=== PATIENT | female | born 1960 | race Caucasian/White ===

== ENCOUNTER 2018-07-11 11:26 | Inpatient (IN) | payer OTHER ==
[~2018-07-11] VITALS: Ht 160 cm; Wt 58.1 kg
--- NOTE | ~2018-07-11 | O ---
[facility] [place] [address] OPERATIVE REPORT Name: SHAINA WALTERS Room #: 222-P ADM IN M.R.#: [id number] Admission: 07/11/18 Attend Phys: Houston Jackson MD Discharge: Date of : 56 Report #: [id number] THIS REPORT FOR: //name// CC: Houston Brownlee DATE OF SERVICE: 07/13/2018 SURGEON: Uche Santiago MD PREOPERATIVE DIAGNOSIS: Ulcerative colitis. POSTOPERATIVE DIAGNOSIS: See below. ANESTHESIA USED: See Anesthesia notes. NAME OF THE PROCEDURE: Colonoscopy. INDICATION FOR PROCEDURE: As above. FINDINGS: Severe left-sided colitis. DESCRIPTION OF PROCEDURE: The risks and benefits of the procedure were explained in detail prior to monitored anesthesia. The patient was placed in left lateral decubitus position and digital rectal exam was performed and normal. Next, the Olympus video colonoscope was advanced into the rectum and gently to the cecum without difficulty. A thorough inspection of the colonic mucosal detail was obtained upon slow withdrawal of the colonoscope. There was left-sided colitis that extended from the splenic flexure to the anorectal junction, which was moderate to severe in nature. The retroflexion was not performed in the rectum due to acute inflammation. Beyond these significant findings, there was no evidence of masses, tumors, colitis, AVMs, polyps or other significant abnormality. The patient tolerated the procedure well and was discharged to recovery. IMPRESSION: [id number] left-sided ulcerative colitis. PLAN: See orders. Continue IV corticosteroids and 5-ASA. <ELECTRONICALLY SIGNED> By: Uche Santiago MD 07/14/18 1418 [id number] Uche Santiago MD /nt
[~2018-07-11 11:26] MED LIST: AMITRIPTYLINE H25 M2 PO; CIPRO500 MG PO; CIPROFLOXACIN500 M1 PO; CLEOCIN HCL150 MG PO; FLAGYL500 MG PO; FLORASTOR250 MG PO; HYOSCYAMINE0.125 MG SUBLING; LIALDA1.2 GM PO; NAPROSYN500 MG; NORCO 5-325 TA1 EACH PO; OXYCODONE HCL 55 MG PO; PREDNISONE 10 M10 MG PO; PREDNISONE 5 MG5 M1 PO; PREDNISONE5 GM; ROWASA RECTAL; VALIUM5 MG PO
[2018-07-11 11:49] VITALS: BP 150/95
[2018-07-11 12:37] LABS: URINE BILIRUBIN NEGATIVE (Negative); URINE BLOOD NEGATIVE (Negative); URINE CLARITY CLEAR; URINE COLOR YELLOW; URINE GLUCOSE-RANDOM* NEGATIVE (Negative); URINE KETONES 1+ (Negative); URINE LEUKOCYTES-REFLEX NEGATIVE (Negative); URINE NITRITE-REFLEX NEGATIVE (Negative); URINE PROTEIN (DIPSTICK) NEGATIVE (Negative); URINE SPECIFIC GRAVITY <= 1.005 (1.005-1.035); URINE UROBILINOGEN 0.2 E.U./dl (0.2-1.0)
[2018-07-11 12:59] LABS: BASOPHILS 0.2 % (0.0-2.0); HEMATOCRIT 32.9 % (37.0-47.0); HEMOGLOBIN 11.2 gm/dL (12.0-15.0); LYMPHOCYTES 4.3 % (24.0-44.0); MCH 33.3 pg (26.0-34.0); MCHC 33.9 g/dL (28.0-37.0); MONOCYTES 1.2 % (1.0-8.0); PLATELET COUNT 412 thou/uL (150-400); POLYS 94.3 % (36.0-66.0); RBC 3.36 mil/uL (4.20-5.00); RDW 12.8 % (10.5-14.5); WBC 12.7 thou/uL (4.0-11.0)
[2018-07-11 13:09] LABS: CALCIUM 8.4 mg/dL (8.5-10.1); CREATININE 0.8 mg/dL (0.6-1.0); POTASSIUM 3.6 mmol/L (3.5-5.1)
[2018-07-11 13:12] LABS: APTT 23.8 Seconds (24.5-32.8); PROTIME 10.1 Seconds (9.3-11.4)
[2018-07-11 13:13] LABS: TOTAL BILIRUBIN 0.2 mg/dL (<0.1-1.0); TOTAL PROTEIN 6.7 g/dL (6.4-8.2)
[2018-07-11 15:03] VITALS: BP 110/60
[2018-07-11 16:06] VITALS: BP 132/74
[2018-07-11 17:10] VITALS: BP 123/68
[2018-07-11 20:07] VITALS: BP 122/73
[2018-07-12 03:44] VITALS: BP 104/62
[2018-07-12 08:14] VITALS: BP 141/82
[2018-07-12 15:20] VITALS: BP 112/64
[2018-07-13 08:30] VITALS: BP 130/75
[2018-07-13 19:38] VITALS: BP 118/67
[2018-07-14 08:02] VITALS: BP 120/72
[2018-07-14 20:31] VITALS: BP 103/61
[2018-07-15 08:09] VITALS: BP 127/78
[2018-07-15 13:33] VITALS: BP 127/78
== END 2018-07-15 14:19 | disposition home or self-care (01) | DRG 871 ==
LOC: ER 11:26 → 4E 13:37 → EROBS 13:37 → 4E 16:27 → SICU 07-12 18:55 → ENTRNSPT 07-15 13:58 → EDTRNSPTSTS 07-15 14:00 → SICU 07-15 14:19
PROVIDERS: Emergency Medicine
PROC: 0DJD8ZZ Inspection of Lower Intestinal Tract, Via Natural or Artificial Opening Endoscopic (ICD-10-PCS; principal; 2018-07-13)
DX: A41.9 Sepsis, unspecified organism (principal); E43 Unspecified severe protein-calorie malnutrition; K51.911 Ulcerative colitis, unspecified with rectal bleeding; M19.90 Unspecified osteoarthritis, unspecified site; Z88.2 Allergy status to sulfonamides; Z88.8 Allergy status to other drugs, medicaments and biological substances; Z87.891 Personal history of nicotine dependence; Z79.899 Other long term (current) drug therapy; Z80.0 Family history of malignant neoplasm of digestive organs; Z68.22 Body mass index [BMI] 22.0-22.9, adult
CPT/HCPCS: 10084; 15002; 62110; 62900; 70005

== ENCOUNTER 2018-07-17 10:05 | Inpatient (IN) | payer OTHER ==
[~2018-07-17] VITALS: Ht 160 cm; Wt 56.6 kg
[2018-07-17 10:05] VITALS: BP 147/68
[2018-07-17 10:22] LABS: URINE BILIRUBIN NEGATIVE (Negative); URINE BLOOD NEGATIVE (Negative); URINE CLARITY CLEAR; URINE GLUCOSE-RANDOM* NEGATIVE (Negative); URINE KETONES NEGATIVE (Negative); URINE LEUKOCYTES-REFLEX NEGATIVE (Negative); URINE NITRITE-REFLEX NEGATIVE (Negative); URINE PROTEIN (DIPSTICK) NEGATIVE (Negative); URINE SPECIFIC GRAVITY <= 1.005 (1.005-1.035); URINE UROBILINOGEN 0.2 E.U./dl (0.2-1.0)
[2018-07-17 10:26] LABS: URINE COLOR COLORLESS
[2018-07-17 10:30] LABS: ABSOLUTE NEUTROPHILS 12.2 thou/uL (1.4-8.2); HEMOGLOBIN 10.8 gm/dL (12.0-15.0); LYMPHOCYTES 5.5 % (24.0-44.0); MCH 32.6 pg (26.0-34.0); MCHC 33.7 g/dL (28.0-37.0); MCV 96.8 fL (80.0-100.0); MONOCYTES 2.4 % (1.0-8.0); PLATELET COUNT 465 thou/uL (150-400); POLYS 92.1 % (36.0-66.0); RBC 3.31 mil/uL (4.20-5.00); RDW 12.9 % (10.5-14.5); WBC 13.2 thou/uL (4.0-11.0)
[2018-07-17 10:38] LABS: CALCIUM 8.4 mg/dL (8.5-10.1); CREATININE 0.7 mg/dL (0.6-1.0); POTASSIUM 3.2 mmol/L (3.5-5.1)
[2018-07-17 10:43] LABS: ALBUMIN 2.8 g/dL (3.4-5.0); TOTAL BILIRUBIN 0.3 mg/dL (<0.1-1.0)
[2018-07-17 11:49] VITALS: BP 107/65
[2018-07-17 12:57] VITALS: BP 107/65
[2018-07-17 14:38] VITALS: BP 107/65
[2018-07-17 17:50] VITALS: BP 112/58
[2018-07-17 19:50] VITALS: BP 109/59
[2018-07-18 04:56] VITALS: BP 100/55
[2018-07-18 08:00] VITALS: BP 97/62
[2018-07-18 09:33] VITALS: BP 100/55
[2018-07-18 09:50] VITALS: BP 156/61
[2018-07-18 15:09] LABS: HEP B SURFACE Ab(ANTI-HBS Non Reactive (()); HEPATITIS B SURFACE AG Negative (Negative)
[2018-07-18 20:00] VITALS: BP 108/65
[2018-07-19 04:57] VITALS: BP 123/69
[2018-07-19 05:59] LABS: HEMATOCRIT 30.7 % (37.0-47.0); HEMOGLOBIN 10.3 gm/dL (12.0-15.0); MCH 32.7 pg (26.0-34.0); MCHC 33.5 g/dL (28.0-37.0); MCV 97.6 fL (80.0-100.0); RBC 3.14 mil/uL (4.20-5.00); RDW 12.9 % (10.5-14.5); WBC 11.6 thou/uL (4.0-11.0)
[2018-07-19 06:21] LABS: ALBUMIN 2.5 g/dL (3.4-5.0); CALCIUM 8.5 mg/dL (8.5-10.1); CREATININE 0.7 mg/dL (0.6-1.0); POTASSIUM 3.9 mmol/L (3.5-5.1); TOTAL BILIRUBIN 0.2 mg/dL (<0.1-1.0); TOTAL PROTEIN 5.7 g/dL (6.4-8.2)
[2018-07-19 07:38] VITALS: BP 130/71
[2018-07-19] MEDS ORDERED: HYDROCODONE-AP1 EAC6 PO (15:13)
[2018-07-19] MEDS ORDERED: PREDNISONE 20 M20 MG PO (15:14)
[2018-07-19 15:38] VITALS: BP 130/71
[2018-07-19 15:45] VITALS: BP 138/81
[2018-07-22 10:11] LABS: T-SPOT.TB Negative
== END 2018-07-19 16:47 | disposition home or self-care (01) | DRG 385 ==
LOC: ER 10:05 → 4E 11:31 → EROBS 11:31 → 4E 12:07 → ENTRNSPT 07-19 16:10 → 4E 07-19 16:47
PROVIDERS: Nurse Practitioner; Physician Assistant; Specialist
DX: K51.90 Ulcerative colitis, unspecified, without complications (principal); E43 Unspecified severe protein-calorie malnutrition; M19.042 Primary osteoarthritis, left hand; D64.9 Anemia, unspecified; E86.0 Dehydration; E87.6 Hypokalemia; D72.829 Elevated white blood cell count, unspecified; M19.041 Primary osteoarthritis, right hand; Z90.49 Acquired absence of other specified parts of digestive tract; Z88.2 Allergy status to sulfonamides; Z88.8 Allergy status to other drugs, medicaments and biological substances; Z87.891 Personal history of nicotine dependence; Z80.0 Family history of malignant neoplasm of digestive organs; Z79.899 Other long term (current) drug therapy; Z68.22 Body mass index [BMI] 22.0-22.9, adult
CPT/HCPCS: 10183; 10783

== ENCOUNTER 2018-09-06 08:58 | Emergency (ER) | payer OTHER ==
[~2018-09-06] VITALS: Ht 160 cm; Wt 59.2 kg
--- NOTE | ~2018-09-06 | EKG ---
[address] [address] ELECTROCARDIOGRAM REPORT Name: SELENASHAINA DANIEL Room #: DEP [id number] Admission: 09/06/18 Attend Phys: Discharge: 09/06/18 Date of : 56 Report #: [id number] THIS REPORT FOR: //name// [facility] ED Test Date: 2018-09-06 Test Time: 09:59:09 Pat Name: SHAINA WALTERS Department: Room: Gender: F Accounts Payable Payroll Coordinator: [facility] : 1960 Requested By: Yara Lopez Order Number: [id number] MD: Louie Layne Measurements Intervals [place] Rate: 95 P: 18 TN: 149 QRS: -3 QRSD: 90 T: 7 QT: 333 QTc: 419 Interpretive Statements Sinus rhythm No previous ECG available for comparison Electronically Signed On 09-08-2018 16:44:10 CDT by Louie Layne [email or web address] <ELECTRONICALLY SIGNED> By: Louie Layne MD 09/08/18 1644 [id number] Louie Layne MD /THOMAS
[~2018-09-06 08:58] MED LIST changes: +HYDROCODONE-AP1 EAC6 PO; +PREDNISONE 20 M20 MG PO
[2018-09-06 10:46] LABS: BASOPHILS 0.8 % (0.0-2.0); EOSINOPHILS 1.1 % (0.0-3.0); HEMATOCRIT 32.3 % (37.0-47.0); HEMOGLOBIN 10.5 gm/dL (12.0-15.0); LYMPHOCYTES 23.7 % (24.0-44.0); MCH 28.5 pg (26.0-34.0); MCHC 32.4 g/dL (28.0-37.0); MCV 87.8 fL (80.0-100.0); MONOCYTES 6.4 % (1.0-8.0); PLATELET COUNT 333 thou/uL (150-400); RBC 3.68 mil/uL (4.20-5.00); RDW 15.3 % (10.5-14.5); WBC 5.9 thou/uL (4.0-11.0)
[2018-09-06 10:50] LABS: URINE BILIRUBIN NEGATIVE (Negative); URINE BLOOD NEGATIVE (Negative); URINE CLARITY CLEAR; URINE COLOR YELLOW; URINE GLUCOSE-RANDOM* NEGATIVE (Negative); URINE KETONES NEGATIVE (Negative); URINE LEUKOCYTES-REFLEX NEGATIVE (Negative); URINE NITRITE-REFLEX NEGATIVE (Negative); URINE PROTEIN (DIPSTICK) NEGATIVE (Negative); URINE SPECIFIC GRAVITY <= 1.005 (1.005-1.035); URINE UROBILINOGEN 0.2 E.U./dl (0.2-1.0)
[2018-09-06 11:00] LABS: ANION GAP 7 mmol/L (7-16); BUN 7 mg/dL (7-18); CALCIUM 8.8 mg/dL (8.5-10.1); CHLORIDE 102 mmol/L (98-107); CO2 27 mmol/L (21-32); CREATININE 0.6 mg/dL (0.6-1.0); GLUCOSE 100 mg/dL (74-106); POTASSIUM 3.5 mmol/L (3.5-5.1); SODIUM 136 mmol/L (136-145)
[2018-09-06 11:06] LABS: DIRECT BILIRUBIN < 0.1 mg/dL (<0.1-0.3); LIPASE 201 U/L (73-393); SGOT 17 U/L (15-37); SGPT 26 U/L (30-65); TOTAL BILIRUBIN 0.2 mg/dL (<0.1-1.0); TOTAL PROTEIN 6.4 g/dL (6.4-8.2)
[2018-09-06] MEDS ORDERED: ACETAMINOPHEN-1 EAC1 PO (12:31)
[2018-09-06] MEDS ORDERED: ANTIVERT25 MG PO (13:26)
[2018-09-06 13:31] VITALS: BP 117/73
== END 2018-09-06 13:36 | disposition home or self-care (01) ==
LOC: ER 08:58
PROVIDERS: Emergency Medicine
DX: J06.9 Acute upper respiratory infection, unspecified (principal); R42 Dizziness and giddiness; R51 Headache; K51.90 Ulcerative colitis, unspecified, without complications; M13.849 Other specified arthritis, unspecified hand; Z87.891 Personal history of nicotine dependence; Z88.2 Allergy status to sulfonamides; Z88.6 Allergy status to analgesic agent; Z88.8 Allergy status to other drugs, medicaments and biological substances